=== PATIENT | male | born 1960 | race Caucasian/White ===

== ENCOUNTER → 2016-06-19 | Outpatient (CLI) | payer OTHER | END | disposition home or self-care (01) | LOC: CDC 14:16 | DX: Z01.810 Encounter for preprocedural cardiovascular examination (principal); Z79.891 Long term (current) use of opiate analgesic | CPT/HCPCS: 93000 ==

== ENCOUNTER 2017-01-01 11:45 | Emergency (ER) | payer OTHER ==
[~2017-01-01] VITALS: Ht 177.8 cm; Wt 70.1 kg
[2017-01-01] MEDS ORDERED: KEFLEX500 MG PO (13:56)
[2017-01-01] MEDS ORDERED: PERCOCET 5/31 TABLET PO (13:56)
[2017-01-01 15:25] VITALS: BP 133/69
== END 2017-01-01 15:26 | disposition home or self-care (01) ==
LOC: EME 11:45
PROC: 3E0234Z Introduction of Serum, Toxoid and Vaccine into Muscle, Percutaneous Approach (ICD-10-PCS; principal; 2017-01-01)
DX: S68.021A Partial traumatic metacarpophalangeal amputation of right thumb, initial encounter (principal); W31.89XA Contact with other specified machinery, initial encounter; Z23 Encounter for immunization; F17.200 Nicotine dependence, unspecified, uncomplicated
CPT/HCPCS: 73140; 99281; 99284; S0020

== ENCOUNTER → 2017-01-03 | Outpatient (CLI) | payer OTHER ==
[~2017-01-03] MED LIST: KEFLEX500 MG PO; PERCOCET 5/31 TABLET PO
== END | disposition home or self-care (01) ==
LOC: CDC 08:12
DX: Z01.810 Encounter for preprocedural cardiovascular examination (principal); S67.21XA Crushing injury of right hand, initial encounter; S62.521B Displaced fracture of distal phalanx of right thumb, initial encounter for open fracture
CPT/HCPCS: 93000